=== PATIENT | male | born 1945 | race Caucasian/White ===

== ENCOUNTER 2017-07-26 13:54 | Emergency (ER) | payer OTHER ==
--- NOTE | 2017-07-26 16:01 | EDPHY ---
H & P Stated Complaint: R leg cramping x 3 days no trauma Time Seen by Provider: 07/26/17 15:59 HPI/ROS: HPI: This is a 71-year-old male who presents with Chief Complaint: R leg cramping x 3 days no trauma Location: Right leg Quality: Crampy Duration: 3 days Signs and Symptoms: No bleeding, no radiation, no numbness, no weakness, no tingling, no incontinence, no decreased range of motion, no swelling, + pain, no fever Timing: Acute, intermittent episodes Severity: 08/19 Context: Patient has a history of dementia, coronary artery disease takes aspirin and Plavix, presents accompanied by her is daughter who provides the majority of the information due to memory deficits. He has been complaining of intermittent severe right anterior upper lip leg cramping for the last 3 days. Patient does have a history of falling. Daughter has not seen any bruising. Patient is ambulatory without any deficits. Denies LOC/head injury/neck pain/ dizziness/nausea/vomiting/amnesia. Eating and drinking normally. Urinating without any difficulty. Denies fever, abdominal pain, nausea, vomiting. No prior history of low back pain. Modifying Factors: None Comment: ROS: Difficult due to dementia MEDICAL/SURGICAL/SOCIAL HISTORY: PSHx: CABG triple 2011, stent 2000, tonsillectomy PMHx: GERD, [place], CAD, dementia Social history: Never smoked. CONSTITUTIONAL: Nontoxic-appearing elderly white male, awake and alert, no obvious distress HEENT: Atraumatic and normocephalic. NECK: supple, no midline tenderness, flexion 45 degrees, extension 45 degrees, right and left lateral flexion 45 degrees. No meningismus. Cardiovascular: Normal S1/S2, regular rate, regular rhythm, without murmur rub or gallop. PULMONARY/CHEST: Symmetrical and nontender. no crepitus. Clear to auscultation bilaterally. Good air movement. No accessory muscle usage. ABDOMEN: Soft, nondistended, nontender, no ecchymosis. PELVIC: no pain with rocking; bilateral hips flexion 125 degrees, extension 30 degrees, with no pain internal rotation and no pain external rotation. BACK: No midline tenderness, no paraspinous spasm, deep tendon reflexes 2/2, no pain with straight leg raise, No foot drop. Achilles reflexes are equal bilaterally. Able to walk on heels and toes without difficulty. EXTREMITIES: 2/2 pulses, strength 5/5, right anterior thigh shows no ecchymosis no swelling no induration no redness; DIP/PIP/MCP flexion/extension intact with good light touch sensation. no deformities, no clubbing, no cyanosis or edema. NEUROLOGICAL: no focal neuro deficits. GCS 15. Light touch sensation intact. SKIN: Warm and dry, no erythema. no rash. Good capillary refill. Source: Patient, Family (Daughter) Exam Limitations: No limitations - Medical/Surgical History Hx Asthma: No Hx Chronic Respiratory Disease: No Hx Diabetes: No Hx Cardiac Disease: Yes Hx Renal Disease: No Hx Cirrhosis: No Hx Alcoholism: Yes Hx HIV/AIDS: No Hx Splenectomy or Spleen Trauma: No Other PMH: PSHx: CABG triple 2011, stent 2000, tonsillectomy. PMHx: GERD, [place], CAD - Social History Smoking Status: Never smoked Constitutional: Initial Vital Signs Temperature (C) 36.7 C 07/26/17 13:58 Heart Rate 72 07/26/17 13:58 Respiratory Rate 18 07/26/17 13:58 Blood Pressure 109/59 L 07/26/17 13:58 O2 Sat (%) 94 07/26/17 13:58 O2 Delivery Mode Room Air Allergies/Adverse Reactions: No Known Allergies Allergy (Unverified 05/16/11 07:59) Home Medications: Medication Instructions Recorded Aspirin [Aspirin 325 mg (*)] 325 mg PO DAILY 05/16/11 Calcium Carbonate [Tums 500MG (*)] 500 mg PO DAILY PRN 10/31/15 Clopidogrel Bisulfate [Plavix (*)] 75 mg PO DAILY 10/31/15 Herbals/Supplements -Info Only 1 ea PO DAILY 10/31/15 Ibuprofen [Motrin (*)] 200 mg PO DAILY PRN 10/31/15 Multivitamins [Multivitamin (*)] 1 each PO DAILY 10/31/15 Simvastatin [Zocor] 80 mg PO DAILY18 10/31/15 Acetaminophen [Tylenol 325mg (*)] 650 mg PO Q4 PRN #0 tab 11/10/15 Polyethylene Glycol 3350 [Miralax 17 gm PO DAILY PRN #0 pkt 11/10/15 17 gm (*)] oxyCODONE/APAP 5/325 [Percocet 1 - 2 tab PO Q4H PRN #10 tab 07/26/17 5/325 (*)] Medical Decision Making ED Course/Re-evaluation: Labs, urinalysis, oral medications, lumbar sacral x-ray, right hip x-ray, right lower extremity ultrasound ordered 1706: Labs reviewed. No signs of leukocytosis/anemia/platelet dysfunction/SKYLAR/ elevated LFTs/electrolyte imbalance/pancreatitis. Called by Dr. Adrien Qiu who advises that right lower extremity ultrasound shows no signs of DVT, positive Carroll cyst 4 cm Urinalysis shows no hematuria, no infection Hip x-ray my read shows mild degenerative changes, no fracture. Lumbar sacral spine my x-ray shows moderate degenerative changes, mild anterior L3 wedge fracture that appears old per radiology. No signs of neurovascular compromise/tenting of skin/compartment syndrome/ extremities and joints examined above and below area of concern and are neurovascularly intact/cauda equina syndrome. No indication for emergent MRI of the lumbar spine in the ER. Patient given a prescription for Percocet with follow-up appointment and 1 week with primary care provider. This patient was seen under the supervision of my secondary supervising physician. I evaluated care for this patient independently. Discussed this patient with Dr. Huang who did not see the patient. Differential Diagnosis: Leg swelling including but not limited to hypoalbuminemia, congestive heart failure, cor pulmonale, chronic venous stasis and DVT. - Data Points Laboratory Results: Laboratory Results 07/26/17 16:15 07/26/17 16:15 Medications Given: Discontinued Medications Oxycodone/Acetaminophen (Percocet 5/325) 1 tab PO EDNOW ONE Stop: 07/26/17 16:09 Last Admin: 07/26/17 16:36 Dose: 1 tab Departure - Departure Disposition: Home, Routine, Self-Care Clinical Impression: Lumbar degenerative disc disease, Lumbar radiculopathy, acute, Compression fracture of third lumbar vertebra with routine healing Carroll's cyst of knee Qualifiers: Laterality: right Qualified Code(s): M71.21 - Synovial cyst of popliteal space [Carroll], right knee Condition: Good Instructions: Bakers Cyst (ED), Lumbar Radiculopathy (ED), Degenerative Disc Disease (ED) Additional Instructions: Please keep follow-up appointment with primary care provider as previously scheduled. If back pain continues to persist, recommend outpatient MRI lumbar spine for old L3 compression fracture seen on x-rays today. Take Percocet 1 tab every 4-6 hours as needed for severe, breakthrough pain. Return to the ER immediately if you have new or worsening back pain, fevers/ chills, flu like symptoms, incontinence or inability to urinate or defecate, weakness, paralysis, or any other symptom that concerns you Referrals: PCP Not In,Dictionary [Medical Doctor] - 5-7 days, call for appt. Prescriptions: oxyCODONE/APAP 5/325 [Percocet 5/325 (*)] 1 - 2 tab PO Q4H PRN #10 tab PRN Reason: Pain, Severe
[2017-07-26] MEDS ORDERED: OXYCODONE/APAP 5/325 TAB PO ONE (16:08)
[2017-07-26 16:29] LABS: PLATELET COUNT 228 10^3/uL (150-400)
[2017-07-26 17:54] VITALS: BP 118/78
== END 2017-07-26 17:54 | disposition home or self-care (01) ==
DX: M71.21 Synovial cyst of popliteal space [Baker], right knee (principal); M51.36 Other intervertebral disc degeneration, lumbar region; M54.16 Radiculopathy, lumbar region; M84.48XD Pathological fracture, other site, subsequent encounter for fracture with routine healing; I25.810 Atherosclerosis of coronary artery bypass graft(s) without angina pectoris; I25.2 Old myocardial infarction; Z79.82 Long term (current) use of aspirin